=== PATIENT | female | born 1950 | race African-American/Black ===

== ENCOUNTER 2021-05-15 14:04 | Emergency (ER) | payer BC, MEDICARE ==
[~2021-05-15] VITALS: Ht 154.9 cm; Wt 105.0 kg
[2021-05-15 14:54] LABS: CLARITY URINE CLOUDY (CLEAR); COLOR URINE DARK YELLOW (YELLOW); KETONES URINE TRACE (NEGATIVE); LEUKOCYTE ESTERASE URINE TRACE (NEGATIVE); NITRITE URINE POSITIVE (NEGATIVE); OCCULT BLOOD URINE TRACE (NEGATIVE); PROTEIN URINE 3+ (NEGATIVE); SPECIFIC GRAVITY URINE 1.019 (1.005-1.030); UROBILINOGEN URINE 0.2 E.U./dL (0.2-1.0)
[2021-05-15 15:16] LABS: CHLORIDE 104 mEq/L (98-107)
[2021-05-15 15:20] LABS: BASOPHILS % 0.8 % (0.0-2.0); EOSINOPHILS % 1.2 % (0.0-5.0); HEMATOCRIT. 43.8 % (36.0-48.0); HEMOGLOBIN. 15.4 g/dL (12.0-16.0); LYMPHOCYTES % 19.7 % (20.0-50.0); MEAN CORPUSCULAR VOLUME 102.8 fL (81.0-99.0); MEAN PLATELET VOLUME 9.2 fl (7.4-10.4); MONOCYTES % 12.7 % (2.0-8.0); NEUTROPHILS % 65.6 % (40.0-76.0); PLATELET 311 x1000/uL (130-400); RED BLOOD CELL COUNT 4.27 mill/uL (4.2-5.4); RED CELL DISTRIBUTION WIDTH 13.5 % (11.6-14.6)
[2021-05-15] MEDS ORDERED: AMOX-494 MT (15:54)
[2021-05-15 16:01] VITALS: BP 173/63
== END 2021-05-15 16:33 | disposition home or self-care (01) ==
LOC: ER 14:04
DX: E87.5 Hyperkalemia (principal); N30.90 Cystitis, unspecified without hematuria; E11.9 Type 2 diabetes mellitus without complications; I10 Essential (primary) hypertension; Z88.8 Allergy status to other drugs, medicaments and biological substances; Z96.60 Presence of unspecified orthopedic joint implant
CPT/HCPCS: 36415; 71045; 80053; 81003; 85025; 93005; 99285